=== PATIENT | male | born 1990 | race Caucasian/White ===

== ENCOUNTER 2017-03-07 06:22 | Outpatient (CLI) | payer SELFPAY | END 2017-03-07 06:23 | disposition EMS.NT | DX: Z04.1 Encounter for examination and observation following transport accident (principal); V47.5XXA Car driver injured in collision with fixed or stationary object in traffic accident, initial encounter; Y92.410 Unspecified street and highway as the place of occurrence of the external cause ==

== ENCOUNTER 2020-07-14 01:00 | Emergency (ER) | payer OTHER ==
[2020-07-14 01:15] VITALS: BP 145/56
[2020-07-14 01:24] LABS: BILIRUBIN,URINE NEGATIVE (NEGATIVE); GLUCOSE, URINE (UA) NEGATIVE (NEGATIVE); KETONES,URINE (UA) NEGATIVE (NEGATIVE); LEUKOCYTE ESTERASE, URINE MODERATE (NEGATIVE); NITRITE,URINE POSITIVE (NEGATIVE); OCCULT BLOOD,URINE MODERATE (NEGATIVE); PROTEIN,URINE NEGATIVE (NEGATIVE); UROBILINOGEN,URINE 0.2 (NORMAL) E.U./dL (NORMAL)
[2020-07-14 01:27] LABS: CLARITY,URINE HAZY (CLEAR)
[2020-07-14 01:33] LABS: BACTERIA,URINE Few /HPF (None Seen); SQUAMOUS EPITHELIAL CELL,UR NONE SEEN (<= Few)
--- NOTE | 2020-07-14 01:33 | ED Physician Documentation ---
PD HPI MALE - Stated complaint Stated Complaint: M /FEVER/CHILLS - Chief complaint Chief Complaint: General - History obtained from History obtained from: Patient - History of Present Illness Timing - onset: How many days ago (2) Timing - duration: Days (2) Timing - details: Abrupt onset, Still present Associated symptoms: Dysuria, Urinary frequency, Hematuria, Back pain (lower back). No: Discharge, Testiclar pain, Scrotal swelling PD HPI MALE CONTRIB FACTORS: Sexually active Similar symptoms before: Has not had sx before Review of Systems Constitutional: reports: Fever, Chills Nose: denies: Rhinorrhea / runny nose, Congestion Throat: denies: Sore throat Respiratory: denies: Cough GI: reports: Nausea. denies: Vomiting, Diarrhea : reports: Dysuria, Frequency. denies: Discharge Skin: denies: Rash, Lesions PD PAST MEDICAL HISTORY - Past Medical History Past Medical History: No Cardiovascular: None Respiratory: None Neuro: None Endocrine/Autoimmune: None GI: None : None HEENT: None Psych: None Musculoskeletal: None Derm: None - Past Surgical History Past Surgical History: No - Present Medications Home Medications: Ambulatory Orders Medication Instructions Recorded Confirmed Cephalexin [Keflex] 500 mg PO Q6H #28 capsule 07/14/20 Naproxen 500 mg PO BID #25 tablet 07/14/20 Ondansetron Odt [Zofran] 4 mg TL Q6H PRN #10 tablet 07/14/20 - Allergies Allergies/Adverse Reactions: Allergies Allergy/AdvReac Type Severity Reaction Status Date / Time No Known Drug Allergies Allergy Verified 07/14/20 01:15 - Social History Does the pt smoke?: No Smoking Status: Never smoker Does the pt drink ETOH?: No Does the pt have substance abuse?: No - Immunizations Immunizations are current?: Yes - POLST Patient has POLST: No PD ED PE NORMAL - Vitals Vital signs reviewed: Yes - General General: Alert and oriented X 3, No acute distress, Well developed/nourished - Abdomen Abdomen: Normal bowel sounds, Soft, Non tender, Non distended - Male Male : Deferred - Back Back: No CVA TTP - Derm Derm: Normal color, Warm and dry - Neuro Neuro: Alert and oriented X 3, No motor deficit, Normal speech Results - Vitals Vitals: Vital Signs - 24 hr 07/14/20 07/14/20 07/14/20 01:12 02:04 02:38 Temperature 38.0 C H Heart Rate 106 H Respiratory 17 17 17 Rate Blood Pressure 145/56 H O2 Saturation 96 07/14/20 02:48 Temperature Heart Rate Respiratory 17 Rate Blood Pressure O2 Saturation Oxygen O2 Source Room air - Labs Labs: Laboratory Tests 07/14/20 01:15 Urine Color YELLOW Urine Clarity HAZY Urine pH 6.0 Ur Specific [place] 1.015 Urine Protein NEGATIVE Urine Glucose (UA) NEGATIVE Urine Ketones NEGATIVE Urine Occult Blood MODERATE H Urine Nitrite POSITIVE H Urine Bilirubin NEGATIVE Urine Urobilinogen 0.2 (NORMAL) Ur Leukocyte Esterase MODERATE H Urine RBC 6-10 H Urine WBC >25 H Ur Squamous Epith Cells NONE SEEN Urine Bacteria Few Ur Microscopic Review INDICATED Urine Culture Comments INDICATED PD MEDICAL DECISION MAKING - ED course Complexity details: reviewed results (Urinalysis consistent with UTI.), considered differential, d/w patient Departure - Departure Disposition: 01 Home, Self Care Clinical Impression: UTI (urinary tract infection) Qualifiers: Urinary tract infection type: site unspecified Hematuria presence: without hematuria Qualified Code(s): N39.0 - Urinary tract infection, site not specified Condition: Stable Record reviewed to determine appropriate education?: Yes Instructions: ED UTI Cystitis Male Follow-Up: MARSHALL Betancur [Provider Group] Prescriptions: Cephalexin [Keflex] 500 mg PO Q6H #28 capsule Naproxen 500 mg PO BID #25 tablet Ondansetron Odt [Zofran] 4 mg TL Q6H PRN #10 tablet PRN Reason: Nausea / Vomiting Comments: Stay well-hydrated. Use naproxen 2-3 times a day for fevers and pains. Ondansatron if needed for nausea. Cephalexin antibiotic 4 times a day for a week for the infection. The urine sample we did show signs of infection and would be consistent with your symptoms. We will we are doing a urine culture as well and that will result in a couple of days. With that we will see if you are on the appropriate antibiotic (which will be true typically 95% of the time) or if we need to change it to a different one. Recheck if not improving well over the next 2 to 3 days and sooner if you have worsening symptoms to include persistent fevers, vomiting, flank pain or other concerns. Forms: Activity restrictions Discharge Date/Time: 07/14/20 02:49
[2020-07-14] MEDS ORDERED: ONDANSETRON ODT 4 MG TABLET TL STA (02:18)
[2020-07-14] MEDS ORDERED: LIDOCAINE 1% 2 ML VIAL MC ONE (02:19)
[2020-07-14] MEDS ORDERED: cefTRIAXone 1 GM VIAL IM STA (02:19)
== END 2020-07-14 02:49 | disposition home or self-care (01) ==
LOC: ED 01:00
DX: N39.0 Urinary tract infection, site not specified (principal)
CPT/HCPCS: 81001; 87086; 87181; 96372; 99283; Q0162; 81003